=== PATIENT | male | born 2005 | race Caucasian/White ===

== ENCOUNTER 2024-05-14 05:45 | Day surgery (SDC) | payer BC, OTHER ==
[2024-05-14] MEDS ORDERED: fentaNYL 100 MCG/2 ML SDV IV ONE (05:46)
[2024-05-14] MEDS ORDERED: Midazolam 1 MG/ML 2 ML SDV IV ONE (05:46)
[2024-05-14] MEDS: Dextrose 5%-0.45% NaCl 1,000 ML IV SCH (06:20)
[2024-05-14] MEDS ORDERED: Midazolam 1 MG/ML 2 ML SDV ONE ×2 (06:20→07:07)
[2024-05-14] MEDS ORDERED: fentaNYL 100 MCG/2 ML SDV ONE (06:21)
[2024-05-14] MEDS: fentaNYL 100 MCG/2 ML SDV IV ONE ×2 (07:02→07:03)
[2024-05-14] MEDS: Midazolam 1 MG/ML 2 ML SDV IV ONE ×3 (07:03→07:07)
[2024-05-14 08:36] VITALS: BP 105/62; PULSE 78
== END 2024-05-14 08:40 | disposition home or self-care (01) ==
LOC: DL.ENDO 05:45
PROVIDERS: ATTEND Internal Medicine Gastroenterology
DX: K25.9 Gastric ulcer, unspecified as acute or chronic, without hemorrhage or perforation (principal); R13.10 Dysphagia, unspecified; F41.1 Generalized anxiety disorder
CPT/HCPCS: 43239; 87077; J2250; J3010; J7799